=== PATIENT | male | born 2000 | race African-American/Black ===

== ENCOUNTER 2021-10-27 22:14 | Emergency (ER) | payer SELFPAY ==
[~2021-10-27] VITALS: Ht 182.9 cm; Wt 78.5 kg
[2021-10-27] MEDS ORDERED: levETIRAcetam 1,000mg PREMIX 100 ML IV ONE (22:45)
[2021-10-27] MEDS ORDERED: IV NORMAL SALINE 1000ML BAG 1,000 ML IV ONE (22:45)
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
[2021-10-28 00:07] VITALS: BP 102/54
[2021-10-28] MEDS ORDERED: LEVE500T56 PO (04:26)
== END 2021-10-28 04:44 ==
LOC: ER 22:14
DX: G40.909 Epilepsy, unspecified, not intractable, without status epilepticus (principal); F31.9 Bipolar disorder, unspecified; Z88.8 Allergy status to other drugs, medicaments and biological substances
CPT/HCPCS: 96365; 96375; 96376; 99285; J2060; J7030